=== PATIENT | female | born 1995 | race Caucasian/White ===

== ENCOUNTER 2020-01-17 18:20 | Inpatient (IN) | payer OTHER ==
[~2020-01-17] VITALS: Ht 162.6 cm; Wt 61.7 kg
[2020-01-17 18:21] VITALS: BP 137/87
[2020-01-17 19:56] LABS: HEMATOCRIT 29.9 % (37.0-47.0); HEMOGLOBIN 9.6 gm/dL (12.0-15.0); MCH 23.7 pg (26.0-34.0); MCV 74.1 fL (80.0-100.0); PLATELET COUNT 304 thou/uL (150-400); RBC 4.03 mil/uL (4.20-5.00); RDW 36.7 % (10.5-14.5); WBC 8.1 thou/uL (4.0-11.0)
[2020-01-17 20:08] LABS: CALCIUM 9.2 mg/dL (8.5-10.1); CREATININE 0.6 mg/dL (0.6-1.0); POTASSIUM 3.4 mmol/L (3.5-5.1)
[2020-01-17 20:14] LABS: ALBUMIN 3.8 g/dL (3.4-5.0); TOTAL PROTEIN 7.2 g/dL (6.4-8.2)
[2020-01-17 20:22] LABS: ANISOCYTOSIS 3+; HYPOCHROMASIA 2+; POLYCHROMASIA OCCASIONAL; SCHISTOCYTES OCCASIONAL
[2020-01-17 20:23] LABS: OVALOCYTES FEW
[2020-01-17 20:24] LABS: MICROCYTES 1+
[2020-01-17 20:55] LABS: APTT 20.6 Seconds (24.5-32.8); FIBRINOGEN 330.6 mg/dL (210-360); INR 1.1; PROTIME 10.8 Seconds (9.3-11.4)
[2020-01-17 21:45] VITALS: BP 136/79
[2020-01-17 22:27] VITALS: BP 145/103
--- NOTE | 2020-01-18 00:33 | NUR ---
PT ARRIVED TO UNIT APPROX 2230, ADMISSION COMPLETED, CONSENTS SIGNED. PT ASKING IF SHE NEEDS TO STAY OR IF SHE COULD GO HOME INSTEAD. NURSE PRACTIONER EDUCATED ABOUT WHY SHE HAD BEEN ADMITTED AND PT AGREED TO STAY. GAVE DOSE OF POTASSIUM REPLACEMENT. REPORTED WRIST IV CAUSING PAIN, BUT WHEN ATTEMPTING TO START A NEW IV, PT AGAIN BROUGHT UP WHETHER SHE REALLY NEEDED AN IV OR EVEN TO STAY IN THE HOSPITAL. NOTIFIED NURSE PRACTIONER WHO AGREED PT COULD LEAVE AMA. AMA FORM SIGNED AND WITNESSED, PT WALKED TO ER EXIT AT 0020.
== END 2020-01-18 00:25 | disposition left against medical advice (07) | DRG 812 ==
LOC: ER 18:20 → EROBS 21:29 → 3W 22:03
PROVIDERS: Emergency Medicine Emergency Medical Services; ADMIT Hospitalist
DX: T80.89XA Other complications following infusion, transfusion and therapeutic injection, initial encounter (principal); N93.8 Other specified abnormal uterine and vaginal bleeding; F12.90 Cannabis use, unspecified, uncomplicated; F17.210 Nicotine dependence, cigarettes, uncomplicated; D64.9 Anemia, unspecified; Z53.29 Procedure and treatment not carried out because of patient's decision for other reasons; Z90.49 Acquired absence of other specified parts of digestive tract; Z88.2 Allergy status to sulfonamides; Z87.81 Personal history of (healed) traumatic fracture; Y83.8 Other surgical procedures as the cause of abnormal reaction of the patient, or of later complication, without mention of misadventure at the time of the procedure; Y92.89 Other specified places as the place of occurrence of the external cause
CPT/HCPCS: 10879

== ENCOUNTER 2020-03-18 07:13 | Emergency (ER) | payer OTHER ==
[~2020-03-18] VITALS: Ht 162.6 cm; Wt 49.0 kg
[2020-03-18 08:15] LABS: WBC 4.5 thou/uL (4.0-11.0)
[2020-03-18 08:18] LABS: MCH 17.9 pg (26.0-34.0); MCHC 29.7 g/dL (28.0-37.0); MCV 60.3 fL (80.0-100.0); PLATELET COUNT 364 thou/uL (150-400); RBC 1.77 mil/uL (4.20-5.00); RDW 24.7 % (10.5-14.5)
[2020-03-18 08:24] LABS: HEMATOCRIT 10.7 % (37.0-47.0); HEMOGLOBIN 3.2 gm/dL (12.0-15.0)
[2020-03-18 08:27] LABS: CALCIUM 8.3 mg/dL (8.5-10.1); CREATININE 1.5 mg/dL (0.6-1.0); POTASSIUM 3.1 mmol/L (3.5-5.1)
[2020-03-18 08:35] LABS: URINE BILIRUBIN NEGATIVE (Negative); URINE BLOOD 1+ (Negative); URINE CLARITY CLEAR; URINE COLOR YELLOW; URINE GLUCOSE-RANDOM* NEGATIVE (Negative); URINE KETONES NEGATIVE (Negative); URINE LEUKOCYTES-REFLEX NEGATIVE (Negative); URINE NITRITE-REFLEX NEGATIVE (Negative); URINE PROTEIN (DIPSTICK) NEGATIVE (Negative); URINE SPECIFIC GRAVITY 1.015 (1.005-1.035); URINE UROBILINOGEN 0.2 E.U./dl (0.2-1.0)
[2020-03-18 09:40] LABS: BACTERIA-REFLEX 1-9 Few /HPF (None Seen); CASTS None Seen /LPF (None Seen); CRYSTALS None Seen /LPF (None Seen); SQUAMOUS 0-3 Few /LPF (0-3); URINE RBC 3-10 Few /HPF (0-2); URINE WBC-REFLEX 0-5 Rare /HPF (0-5)
[2020-03-18 09:52] LABS: ABSOLUTE NEUTROPHILS 3.3 thou/uL (1.4-8.2)
[2020-03-18 09:53] LABS: ANISOCYTOSIS 3+; HYPOCHROMASIA 3+; MICROCYTES 3+
[2020-03-18 10:05] VITALS: BP 118/78
== END 2020-03-18 10:05 | disposition short-term general hospital (02) ==
LOC: ER 07:13
PROVIDERS: Emergency Medicine Emergency Medical Services
DX: N93.8 Other specified abnormal uterine and vaginal bleeding (principal); D64.9 Anemia, unspecified; Z90.89 Acquired absence of other organs; Z90.49 Acquired absence of other specified parts of digestive tract; Z88.2 Allergy status to sulfonamides

== ENCOUNTER 2021-01-11 18:40 | Emergency (ER) | payer OTHER ==
[~2021-01-11] VITALS: Ht 162.6 cm; Wt 59.0 kg
[2021-01-11 18:47] VITALS: BP 124/64
[2021-01-11] MEDS ORDERED: NORCO5 PO (19:35)
[2021-01-11] MEDS ORDERED: DOXYCYCLINE 10100 MG PO (19:35)
== END 2021-01-11 19:57 | disposition home or self-care (01) ==
LOC: ER 18:40
DX: L73.9 Follicular disorder, unspecified (principal); F17.210 Nicotine dependence, cigarettes, uncomplicated; Z90.49 Acquired absence of other specified parts of digestive tract; Z90.89 Acquired absence of other organs; Z88.2 Allergy status to sulfonamides